=== PATIENT | male | born 1965 | race Caucasian/White ===

== ENCOUNTER 2018-08-31 11:02 | Emergency (ER) | payer BC, SELFPAY ==
[~2018-08-31] VITALS: Ht 180.3 cm; Wt 95.3 kg
[2018-08-31] MEDS ORDERED: LIDOCAINE 1% Multi-Dose 20 ML VIAL. INJ ONE (11:15)
--- NOTE | 2018-08-31 11:22 | PHYS DOC ---
Adult General Chief Complaint Chief Complaint: FINGER INJURY HPI HPI 52-year-old male presents to ER via POV for complaints of accidental laceration to left index finger prior to arrival. Reports he was using his pocket knife and slipped causing the laceration. Patient is up-to-date on tetanus within the past 5 years. Patient is right hand dominant. Review of Systems Review of Systems Musculoskeletal: Reports tender lt index finger at lac site Integument: Reports laceration lt index finger Neurologic: Denies focal weakness or sensory changes [] All other systems were reviewed and found to be within normal limits, except as documented in this note. Current Medications Current Medications Current Medications Medications (Trade) Dose Ordered Sig/La Start Time Stop Time Status Last Admin Dose Admin Lidocaine HCl (Lidocaine 1% 20ml Vial) 20 ml 1X ONCE 08/31/18 11:15 08/31/18 11:17 DC 08/31/18 11:25 20 ML Allergies Allergies Allergies Coded Allergies Type Severity Reaction Last Updated Verified Sulfa (Sulfonamide Antibiotics) Allergy Intermediate Hives 08/31/18 Yes Physical Exam Physical Exam Constitutional: Well developed, well nourished, no acute distress, non-toxic appearance. [] HENT: Normocephalic, atraumatic, oropharynx moist, nose normal. [] Eyes: Pupils equal, conjunctiva normal, no discharge. [] Neck: Normal range of motion, supple Cardiovascular:Heart rate regular Lungs & Thorax: Resp. equal/nonlabored Skin: Warm, dry Extremities: No cyanosis, no clubbing, ROM intact, no edema. Laceration distal end dorsal surface lt index finger. 2+ radial pulse left upper extremity. Brisk capillary refill. Flexor tendon intact against resistance left index finger area Neurologic: Alert and oriented X 3, normal motor function, normal sensory function, no focal deficits noted. [] Psychologic: Affect normal, judgement normal, mood normal. [] Current Patient Data Vital Signs Vital Signs Date Time Temp Pulse Resp B/P (MAP) Pulse Ox O2 Delivery O2 Flow Rate FiO2 08/31/18 11:15 98.1 90 18 168/100 (122) 98 Room Air 98.1 EKG EKG [] Radiology/Procedures Radiology/Procedures Laceration Repair by me: [id number] Digital block with dorsal approach left index finger web spaces Anesthesia: 1% lidocaine locally 0.5 mL Location: Lt index finger- dorsal surface distal to mid joint across distal joint to medial side of finger Tendon/Joint/Nerves: No injury- flexor tendon intact against resistance prior to and following lac repair Foreign body: None detected after copious irrigation and exploration Technique: Simple Interrupted Sutures #4 5.0 nylon Dermabond applied at distal tip of laceration as wound was superficial at that area Complexity: No subcutaneous sutures/mucosal repair/edge excision Post Closure Length: 2.5 cm Patient's bleeding was easily controlled in the department and there is no indication of anemia. No evidence of compartment syndrome, neurologic injury, vascular injury, open joint, tendon laceration, or foreign body. Patient is appropriate for outpatient follow up. 48 hour wound check. Scar minimization instructions given. Course & Med Decision Making Course & Med Decision Making Pt was evaluated in the ER for laceration to left index finger. Patient is up-to-date on tetanus prior to arrival. Patient had sutures used for laceration repair and tolerated procedure well. He remains neurovascular intact in left upper extremity with full flexor extension of left index finger. Wound care education provided. Education provided on signs and symptoms to return to ER. Discharge instructions were discussed. Patient to follow-up with primary care physician for suture removal in 5-7 days sooner with concerns. Dragon Disclaimer Dragon Disclaimer This electronic medical record was generated, in whole or in part, using a voice recognition dictation system. Departure Departure Impression: Primary Impression: Laceration of finger of left hand Disposition: 01 HOME, SELF-CARE Condition: STABLE Patient Instructions: Laceration Care, Adult, Sutured Wound Care Additional Instructions: Tylenol and/or ibuprofen as needed for pain as directed on container. Follow-up with your primary care physician in 5-7 days for suture removal. Aluminum splint to provide protection to laceration site. Monitor site daily for signs of infection. Remove splint daily and perform light range of motion with index finger joints to prevent locking of joints. CAROL BAPTISTE APRN August 31, 2018 11:22
[2018-08-31 12:38] VITALS: BP 184/93
== END 2018-08-31 12:40 | disposition home or self-care (01) ==
LOC: ER 11:02
DX: S61.211A Laceration without foreign body of left index finger without damage to nail, initial encounter (principal); Z88.2 Allergy status to sulfonamides; W26.0XXA Contact with knife, initial encounter; Y93.89 Activity, other specified; Y92.89 Other specified places as the place of occurrence of the external cause; Y99.8 Other external cause status
CPT/HCPCS: 12001; 99283